=== PATIENT | male | born 1945 | race Caucasian/White ===

== ENCOUNTER 2025-06-29 13:36 | Emergency (ER) | payer MEDICARE, SELFPAY ==
[2025-06-29 13:37] VITALS: BP 116/72; PULSE 90; RESP 22; TEMP 36.9; O2SAT 99
--- NOTE | 2025-06-29 14:24 | CT_ITS ---
EXAM: BRAIN/HEAD WITHOUT CONTRAST CLINICAL HISTORY: 79 y/o M with FALL. COMPARISON: None. TECHNIQUE: Routine CT imaging of the head without IV contrast. Additional multiplanar reformats were obtained. Dose reduction techniques were used including intermediate exposure control (AEC),iterative reconstruction technique, and/or mA and/or KV dose adjustments based on patient's size. FINDINGS: The ventricles, sulci and cisterns are mildly prominent, suggestive of brain parenchymal volume loss. There is no evidence of intracranial hemorrhage. There is no midline shift, mass effect, or extra-axial collection. The matt and white matter differentiation in the bilateral cerebral hemispheres is maintained, refuting an acute, large territorial infarct. There are mild, diffuse, symmetrical, periventricular and subcortical white matter lucencies, a nonspecific finding, which may represent sequela of small vessel disease in a patient of this age. The orbits, visualized paranasal sinuses and mastoids are unremarkable. No depressed skull fractures are identified. CT/Brain/Head without Contrast IMPRESSION: No intracranial hemorrhage or large territorial infarct. 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 Reading Location: [facility]
--- NOTE | 2025-06-29 14:24 | CT_ITS ---
PROCEDURE: SPINE CERVICAL WITHOUT CONTRAS 06/29/2025 REASON FOR EXAM: FALL TECHNIQUE: SPINE CERVICAL WITHOUT CONTRAS Coronal and Sagittal reconstruction series were provided. One or more dose reduction techniques were used (e.g., Automated exposure control, adjustment of the mA and/or kV according to patient size, use of iterative reconstruction technique. RADIATION DOSE SUMMARY: Dose reduction techniques used. COMPARISON: Reviewed FINDINGS: Osseous structures intact. Prominent multilevel degenerative changes. Bone loss. Vertebral body heights are preserved. Alignment is grossly maintained. CT/Spine Cervical without Contras IMPRESSION: No acute CT process in the cervical spine. Reading [facility]
--- NOTE | 2025-06-29 14:24 | CT_ITS ---
PROCEDURE: SPINE CERVICAL WITHOUT CONTRAS 06/29/2025 REASON FOR EXAM: FALL TECHNIQUE: SPINE CERVICAL WITHOUT CONTRAS Coronal and Sagittal reconstruction series were provided. One or more dose reduction techniques were used (e.g., Automated exposure control, adjustment of the mA and/or kV according to patient size, use of iterative reconstruction technique. RADIATION DOSE SUMMARY: Dose reduction techniques used. COMPARISON: Reviewed FINDINGS: Osseous structures intact. Prominent multilevel degenerative changes. Bone loss. Vertebral body heights are preserved. Alignment is grossly maintained. CT/Spine Cervical without Contras IMPRESSION: No acute CT process in the cervical spine. Reading [facility]
--- NOTE | 2025-06-29 14:34 | ED.VIS.FALL ---
HPI <SEBLE Arango - Last Filed: 06/29/25 15:44> HPI - Fall History of Present Illness Chief Complaint: Fall Narrative Narrative: 79-year-old male presents after a fall. He was at a restaurant going down a set of stairs behind his when he lost his balance and fell. He hit her and fell approximately 7 steps. He hit the top of his head on something but denies loss of consciousness. He was able to get up and is ambulatory. He has a mild headache and neck soreness. Denies pain in his chest, abdomen, back or extremities. No weakness or numbness or tingling. He is not on blood thinners. PFSH <SEBLE Arango - Last Filed: 06/29/25 15:44> [facility] Home Medications ?Medication ?Instructions ?Recorded ?Last Taken ?Type atorvastatin 40 mg tablet 40 mg PO DAILY 06/29/25 06/28/25 History bupropion HCl 300 mg 24 hr tablet, 300 mg PO DAILY 06/29/25 06/29/25 History extended release erenumab-aooe 70 mg/mL 70 mg subcut QMONTH 06/29/25 06/28/25 History subcutaneous auto-injector (Aimovig Autoinjector) lamotrigine 100 mg tablet 100 mg PO BID 06/29/25 06/29/25 History prochlorperazine maleate 10 mg 10 mg PO Q8H PRN 06/29/25 Unknown History tablet venlafaxine 75 mg capsule,extended 75 mg PO DAILY 06/29/25 06/29/25 History release 24 hr Allergy/AdvReac Type Severity Reaction Status Date / Time 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 Respiratory: Negative for shortness of breath. GI: Negative for nausea, vomiting. Neuro: Positive for headache. EXAM <SEBLE Arango - Last Filed: 06/29/25 15:44> Physical Exam Narrative Exam Narrative: CONST: Patient sitting in no acute distress. EYES: Normal inspection. HEAD: Head normocephalic atraumatic, no raccoon eyes or rae sign, no hemotympanum, no nasal septal hematoma, no CSF otorrhea or rhinorrhea. NECK: Normal inspection. No midline spinal tenderness, no step off or crepitus. RESP: No respiratory distress, CTAB. Chest wall nontender. CVS: Regular rate and rhythm, no murmur, no gallop. ABD: Soft and nontender, no guarding or rebound, nondistended. Back: Normal inspection, no midline tenderness. SKIN: Color normal, no rash, warm, dry, intact. EXTREMITIES: Normal appearance, full range of motion of upper and lower extremities, no bony tenderness, 2+ radial and PT pulses. NEURO: Alert and answering questions appropriately. PSYCH: Normal affect. Const Vital Signs: 06/29/25 13:37 06/29/25 15:47 06/29/25 15:47 Temperature 98.4 F 98.7 F Temperature Source Oral Pulse Rate 90 79 Respiratory Rate 22 H 16 Respiratory Effort Normal Blood Pressure 116/72 127/78 H Blood Pressure Mean 86 94 Pulse Ox 99 100 Oxygen Delivery Method Room Air <Dr. Jesse Adams DO - Last Filed: 06/29/25 21:50> Physical Exam Const Vital Signs: 06/29/25 13:37 06/29/25 15:47 06/29/25 15:47 Temperature 98.4 F 98.7 F Temperature Source Oral Pulse Rate 90 79 Respiratory Rate 22 H 16 Respiratory Effort Normal Blood Pressure 116/72 127/78 H Blood Pressure Mean 86 94 Pulse Ox 99 100 Oxygen Delivery Method Room Air [facility] <SEBLE Arango - Last Filed: 06/29/25 15:44> [facility] Narrative Medical decision making narrative: Differential includes closed head injury, skull fracture, intracranial hemorrhage 79-year-old male tripped down about 7 stairs and hit his head without loss of consciousness. No blood thinners. Denies other injuries and he is able to get up and is ambulatory. He is awake alert no distress. Vital stable. GCS 15. He has no external signs of injury but is sore over the top of his head and diffusely over his neck without focal spinal tenderness or step-offs. He is moving all extremities and neurovascularly intact. Nonfocal neurological exam. CT scans of the head and neck are negative. He declined analgesia, I discussed using ice and Tylenol as needed and discussed head injury return precautions. He was discharged in stable condition. Radiography Diagnostic Testing: Clinical Impression(s) from Imaging Studies Brain CT 06/29/25 14:24 IMPRESSION: No intracranial hemorrhage or large territorial infarct. 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 Reading [facility] Cervical Spine CT 06/29/25 14:24 IMPRESSION: No acute CT process in the cervical spine. Reading Location[facility] <Dr. Jesse Adams, DO - Last Filed: 06/29/25 21:50> [facility] MDM Narrative Medical decision making narrative: Differential includes closed head injury, skull fracture, intracranial hemorrhage 79-year-old male tripped down about 7 stairs and hit his head without loss of consciousness. No blood thinners. Denies other injuries and he is able to get up and is ambulatory. He is awake alert no distress. Vital stable. GCS 15. He has no external signs of injury but is sore over the top of his head and diffusely over his neck without focal spinal tenderness or step-offs. He is moving all extremities and neurovascularly intact. Nonfocal neurological exam. CT scans of the head and neck are negative. He declined analgesia, I discussed using ice and Tylenol as needed and discussed head injury return precautions. He was discharged in stable condition. Supervisory Physician Note Patient was seen and examined with the Advanced Practice Provider. Nursing notes and vital signs have been reviewed. Pertinent old records have been reviewed. I agree with the essential elements of the TISH's history, physical exam, assessment, and plan. The differential diagnosis and management options were discussed with the TISH. I participated in determining and agree with the management, procedures, final impression and disposition as documented. See changes noted by me. Please see addendum or separate note for any additional details. Gen: A&O x3, NAD Head: Normocephalic, atraumatic Eyes: No sclera icterus, conjunctiva clear, PERRL, EOMI ENT: TMs clear BL (bilateral hearing aids removed), moist mucous membranes, no swelling/lacerations/blood in the mouth or the nares, No nasal septal hematoma, no facial tenderness Neck: Trachea midline, No JVD, no midline spinal tenderness, no bony step-offs, mild diffuse tenderness to palpation of the paraspinal musculature of the cervical spine CV: RRR, no murmurs, no chest wall TTP Resp: Lungs CTA BL, no w/r/c GI: Abd soft, non-distended, non-tender, no r/r/g Musc: Full ROM, no deformity, no spinal TTP, no monica step-offs Skin: Warm, dry, intact Neuro: Alert, oriented, grossly intact, sensation intact, GCS 15 Psych: Cooperative, appropriate mood and affect Impression: 1. Closed head injury 2. Cervical strain 3. Mechanical fall Radiography Diagnostic Testing: Clinical Impression(s) from Imaging Studies Brain CT 06/29/25 14:24 IMPRESSION: No intracranial hemorrhage or large territorial infarct. 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 Reading Location: [facility] Cervical Spine CT 06/29/25 14:[address]PRESSION: No acute CT process in the cervical spine. Reading Location: [facility] Discharge Plan Triage Chief Complaint: Fall ED Midlevel Provider: Radha Amador ED Provider: Jesse Adams Dx/Rx/DC Orders Clinical Impression: Fall, Closed head injury Instructions: ED Head Injury (Adult) Prescriptions: No Action atorvastatin 40 mg tablet 40 mg PO DAILY prochlorperazine maleate 10 mg tablet 10 mg PO Q8H PRN lamotrigine 100 mg tablet 100 mg PO BID bupropion HCl 300 mg tablet extended release 24 hr 300 mg PO DAILY Aimovig Autoinjector 70 mg/mL auto-injector 70 mg subcut QMONTH venlafaxine 75 mg capsule,extended release 24hr 75 mg PO DAILY Primary Care Provider: Faustino Escobedo Jr. Referrals: Faustino Escobedo Jr., MD [Primary Care Provider] - Activity Restrictions/Additional Instructions: Your CT scan showed no broken bones or internal bleeding. Ice and take Tylenol as needed. If you develop worsening symptoms or severe headache or vomiting please come back to the emergency room. Print Language: Gambian Disposition Disposition: Home, Self Care Discharge Date/Time: 06/29/25 15:48
--- NOTE | 2025-06-29 14:34 | ED.VIS.FALL ---
HPI <SEBLE Arango - Last Filed: 06/29/25 15:44> HPI - Fall History of Present Illness Chief Complaint: Fall Narrative Narrative: 79-year-old male presents after a fall. He was at a restaurant going down a set of stairs behind his when he lost his balance and fell. He hit her and fell approximately 7 steps. He hit the top of his head on something but denies loss of consciousness. He was able to get up and is ambulatory. He has a mild headache and neck soreness. Denies pain in his chest, abdomen, back or extremities. No weakness or numbness or tingling. He is not on blood thinners. PFSH <SEBLE Arango - Last Filed: 06/29/25 15:44> [facility] Home Medications ?Medication ?Instructions ?Recorded ?Last Taken ?Type atorvastatin 40 mg tablet 40 mg PO DAILY 06/29/25 06/28/25 History bupropion HCl 300 mg 24 hr tablet, 300 mg PO DAILY 06/29/25 06/29/25 History extended release erenumab-aooe 70 mg/mL 70 mg subcut QMONTH 06/29/25 06/28/25 History subcutaneous auto-injector (Aimovig Autoinjector) lamotrigine 100 mg tablet 100 mg PO BID 06/29/25 06/29/25 History prochlorperazine maleate 10 mg 10 mg PO Q8H PRN 06/29/25 Unknown History tablet venlafaxine 75 mg capsule,extended 75 mg PO DAILY 06/29/25 06/29/25 History release 24 hr Allergy/AdvReac Type Severity Reaction Status Date / Time 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 Respiratory: Negative for shortness of breath. GI: Negative for nausea, vomiting. Neuro: Positive for headache. EXAM <SEBLE Arango - Last Filed: 06/29/25 15:44> Physical Exam Narrative Exam Narrative: CONST: Patient sitting in no acute distress. EYES: Normal inspection. HEAD: Head normocephalic atraumatic, no raccoon eyes or rae sign, no hemotympanum, no nasal septal hematoma, no CSF otorrhea or rhinorrhea. NECK: Normal inspection. No midline spinal tenderness, no step off or crepitus. RESP: No respiratory distress, CTAB. Chest wall nontender. CVS: Regular rate and rhythm, no murmur, no gallop. ABD: Soft and nontender, no guarding or rebound, nondistended. Back: Normal inspection, no midline tenderness. SKIN: Color normal, no rash, warm, dry, intact. EXTREMITIES: Normal appearance, full range of motion of upper and lower extremities, no bony tenderness, 2+ radial and PT pulses. NEURO: Alert and answering questions appropriately. PSYCH: Normal affect. Const Vital Signs: 06/29/25 13:37 06/29/25 15:47 06/29/25 15:47 Temperature 98.4 F 98.7 F Temperature Source Oral Pulse Rate 90 79 Respiratory Rate 22 H 16 Respiratory Effort Normal Blood Pressure 116/72 127/78 H Blood Pressure Mean 86 94 Pulse Ox 99 100 Oxygen Delivery Method Room Air <Dr. Jesse Adams DO - Last Filed: 06/29/25 21:50> Physical Exam Const Vital Signs: 06/29/25 13:37 06/29/25 15:47 06/29/25 15:47 Temperature 98.4 F 98.7 F Temperature Source Oral Pulse Rate 90 79 Respiratory Rate 22 H 16 Respiratory Effort Normal Blood Pressure 116/72 127/78 H Blood Pressure Mean 86 94 Pulse Ox 99 100 Oxygen Delivery Method Room Air [facility] <SEBLE Arango - Last Filed: 06/29/25 15:44> [facility] Narrative Medical decision making narrative: Differential includes closed head injury, skull fracture, intracranial hemorrhage 79-year-old male tripped down about 7 stairs and hit his head without loss of consciousness. No blood thinners. Denies other injuries and he is able to get up and is ambulatory. He is awake alert no distress. Vital stable. GCS 15. He has no external signs of injury but is sore over the top of his head and diffusely over his neck without focal spinal tenderness or step-offs. He is moving all extremities and neurovascularly intact. Nonfocal neurological exam. CT scans of the head and neck are negative. He declined analgesia, I discussed using ice and Tylenol as needed and discussed head injury return precautions. He was discharged in stable condition. Radiography Diagnostic Testing: Clinical Impression(s) from Imaging Studies Brain CT 06/29/25 14:24 IMPRESSION: No intracranial hemorrhage or large territorial infarct. 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 Reading [facility] Cervical Spine CT 06/29/25 14:24 IMPRESSION: No acute CT process in the cervical spine. Reading [facility] <Dr. Jesse Adams, DO - Last Filed: 06/29/25 21:50> [facility] MDM Narrative Medical decision making narrative: Differential includes closed head injury, skull fracture, intracranial hemorrhage 79-year-old male tripped down about 7 stairs and hit his head without loss of consciousness. No blood thinners. Denies other injuries and he is able to get up and is ambulatory. He is awake alert no distress. Vital stable. GCS 15. He has no external signs of injury but is sore over the top of his head and diffusely over his neck without focal spinal tenderness or step-offs. He is moving all extremities and neurovascularly intact. Nonfocal neurological exam. CT scans of the head and neck are negative. He declined analgesia, I discussed using ice and Tylenol as needed and discussed head injury return precautions. He was discharged in stable condition. Supervisory Physician Note Patient was seen and examined with the Advanced Practice Provider. Nursing notes and vital signs have been reviewed. Pertinent old records have been reviewed. I agree with the essential elements of the TISH's history, physical exam, assessment, and plan. The differential diagnosis and management options were discussed with the TISH. I participated in determining and agree with the management, procedures, final impression and disposition as documented. See changes noted by me. Please see addendum or separate note for any additional details. Gen: A&O x3, NAD Head: Normocephalic, atraumatic Eyes: No sclera icterus, conjunctiva clear, PERRL, EOMI ENT: TMs clear BL (bilateral hearing aids removed), moist mucous membranes, no swelling/lacerations/blood in the mouth or the nares, No nasal septal hematoma, no facial tenderness Neck: Trachea midline, No JVD, no midline spinal tenderness, no bony step-offs, mild diffuse tenderness to palpation of the paraspinal musculature of the cervical spine CV: RRR, no murmurs, no chest wall TTP Resp: Lungs CTA BL, no w/r/c GI: Abd soft, non-distended, non-tender, no r/r/g Musc: Full ROM, no deformity, no spinal TTP, no monica step-offs Skin: Warm, dry, intact Neuro: Alert, oriented, grossly intact, sensation intact, GCS 15 Psych: Cooperative, appropriate mood and affect Impression: 1. Closed head injury 2. Cervical strain 3. Mechanical fall Radiography Diagnostic Testing: Clinical Impression(s) from Imaging Studies Brain CT 06/29/25 14:24 IMPRESSION: No intracranial hemorrhage or large territorial infarct. 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 Reading Location: [facility] Cervical Spine CT 06/29/25 14:24 IMPRESSION: No acute CT process in the cervical spine. Reading Location: [facility] Discharge Plan Triage Chief Complaint: Fall ED Midlevel Provider: Radha Amador ED Provider: Jesse Adams Dx/Rx/DC Orders Clinical Impression: Fall, Closed head injury Instructions: ED Head Injury (Adult) Prescriptions: No Action atorvastatin 40 mg tablet 40 mg PO DAILY prochlorperazine maleate 10 mg tablet 10 mg PO Q8H PRN lamotrigine 100 mg tablet 100 mg PO BID bupropion HCl 300 mg tablet extended release 24 hr 300 mg PO DAILY Aimovig Autoinjector 70 mg/mL auto-injector 70 mg subcut QMONTH venlafaxine 75 mg capsule,extended release 24hr 75 mg PO DAILY Primary Care Provider: Faustino Escobedo Jr. Referrals: Faustino Escobedo Jr., MD [Primary Care Provider] - Activity Restrictions/Additional Instructions: Your CT scan showed no broken bones or internal bleeding. Ice and take Tylenol as needed. If you develop worsening symptoms or severe headache or vomiting please come back to the emergency room. Print Language: Gibraltarian Disposition Disposition: Home, Self Care Discharge Date/Time: 06/29/25 15:48
[2025-06-29 15:47] VITALS: BP 127/78; PULSE 79; RESP 16; TEMP 37.1; O2SAT 100
== END 2025-06-29 15:48 | disposition home or self-care (01) ==
PROVIDERS: Emergency Provider Surgery; PCP Internal Medicine; Visit Provider Surgery
DX: S09.90XA Unspecified injury of head, initial encounter (principal); S16.1XXA Strain of muscle, fascia and tendon at neck level, initial encounter; W10.9XXA Fall (on) (from) unspecified stairs and steps, initial encounter; Y92.511 Restaurant or cafe as the place of occurrence of the external cause
CPT/HCPCS: 70450; 72125; 99283